=== PATIENT | female | born 1990 | race Caucasian/White ===

== ENCOUNTER 2017-05-04 10:32 | Emergency (ER) | payer MEDICAID ==
[2017-05-04] MEDS ORDERED: NALOXONE HCL INJ/PF 0.4 MG/1 ML SDV IV PRN (11:03)
--- NOTE | 2017-05-04 11:04 | ER Document Report ---
ED General - General Chief Complaint: Overdose Stated Complaint: POSSIBLE OVERDOSE Time Seen by Provider: 05/04/17 10:43 Notes: This is a 26-year-old female who was shooting heroin with a friend and then she went unconscious and stopped breathing. Friend called 911. Ambulance arrived and administered intramuscular Narcan. Patient had return of breathing. Woke up. Patient was transported good patient is tearful and crying at this time. Patient states that "I feel stupid". States that she has had multiple things happen in the past which has led to her having bad issues with addiction. Patient seems remorseful at this time and is requesting help to get off of heroin. Patient denies ever being in drug and alcohol treatment. Denies any suicidal or homicidal ideation at this time. Denies any other complaints. TRAVEL OUTSIDE OF THE [place] 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 Pulmonary Medical History: Reports: Hx Asthma Neurological Medical History: Reports: Hx Seizures Psychiatric Medical History: Reports: Hx Depression Past Surgical History: Reports: Hx Appendectomy, Other - Left lung removal - Immunizations Hx Diphtheria, Pertussis, Tetanus Vaccination: No Review of Systems - Review of Systems Constitutional: denies: Chills, Diaphoresis, Fever, Malaise, Weakness EENT: denies: Eye pain, Blurred vision, Ear pain, Throat pain, Difficulty swallowing, Mouth pain Cardiovascular: denies: Chest pain, Palpitations, Heart racing, Orthopnea, Dyspnea, Syncope Respiratory: Short of breath - Chronic shortness of breath due to left lung resection. denies: Cough, Hurts to breathe, Hemoptysis, Stridor, Wheezing Gastrointestinal: denies: Abdominal pain, Diarrhea, Nausea, Vomiting Genitourinary: denies: Burning, Dysuria, Discharge Musculoskeletal: denies: Back pain, Gout, Joint pain Skin: denies: Lesions, Lumps, Rash Neurological/Psychological: denies: Confusion, Weakness, Numbness Physical Exam - Vital signs Vitals: Temp 97.5 F 05/04/17 10:45 Interpretation: Normal - General General appearance: Appears well, Alert - HEENT Head: Normocephalic, Atraumatic Eyes: Normal Pupils: PERRL - Respiratory Respiratory status: No respiratory distress Chest status: Nontender Breath sounds: Other - Right lung clear, left lung breath sounds absent Chest palpation: Normal - Cardiovascular Rhythm: Regular Heart sounds: Normal auscultation Murmur: No - Abdominal Inspection: Normal Distension: No distension Bowel sounds: Normal Tenderness: Nontender Organomegaly: No organomegaly - Back Back: Normal, Nontender - Extremities General upper extremity: Normal inspection, Nontender, Normal color, Normal ROM , Normal temperature General lower extremity: Normal inspection, Nontender, Normal color, Normal ROM , Normal temperature, Normal weight bearing. No: Tia's sign - Neurological Neuro grossly intact: Yes Cognition: Normal Orientation: AAOx4 Fraser Coma Scale Eye Opening: Spontaneous Fraser Coma Scale Verbal: Oriented Jennifer Coma Scale Motor: Obeys Commands Fraser Coma Scale Total: 15 Speech: Normal Motor strength normal: LUE, RUE, LLE, RLE Sensory: Normal - Psychological Associated symptoms: Normal affect, Normal mood - Skin Skin Temperature: Warm Skin Moisture: Dry Skin Color: Normal, Other - Multiple skin abrasions and injection villalba in various stages of healing. Does appear to have significant scarring of the blood vessels on the back of both hands as well as in the antecubital fossa's of both arms. No obvious abscesses noted. No obvious cellulitis or lesions noted Course - Re-evaluation Re-evalutation: 05/04/17 12:44 At this time we will do basic psychiatric screening labs. Patient is requesting help so we will have mental health see her. If it possible may be able to get her into drug and alcohol program shortly. - Vital Signs Vital signs: Temp Pulse Resp BP Pulse Ox 97.5 F 17 109/76 98 05/04/17 10:45 05/04/17 13:00 05/04/17 13:00 05/04/17 13:00 - Laboratory Result Diagrams: 05/04/17 10:46 05/04/17 10:46 Laboratory results interpreted by me: 05/04/17 05/04/17 05/04/17 10:46 10:46 13:30 WBC 12.1 H RDW 14.2 H Absolute Neutrophils 9.2 H BUN 29 H AST 74 H ALT 150 H Urine Protein 100 H Urine Nitrite POSITIVE H Urine Urobilinogen 2.0 H Salicylates < 1.0 L Acetaminophen < 10 L - EKG Interpretation by Me EKG shows normal: Sinus rhythm, [place], Intervals, QRS Complexes Discharge - Discharge Clinical Impression: Accidental heroin overdose Qualifiers: Encounter type: initial encounter Qualified Code(s): T40.1X1A - Poisoning by heroin, accidental (unintentional), initial encounter Condition: Good Disposition: HOME, SELF-CARE Instructions: Drug Toxicity ([facility]), Overdose ([facility]), Urinary Tract Infection ([facility] ) Additional Instructions: You have been provided with information by our mental health team with regards to outpatient treatment programs. Currently there are no open spots available for us to transfer you there directly. If you feel like you are about to abuse heroin and you would like to get some help then please come to the emergency department and we will gladly watch you and get you through the acute phase of your withdrawal.. Please note that we definitely want you to succeed. If there is anything else that we can do for you we are here for you. Prescriptions: Sulfamethoxazole/Trimethoprim [Bactrim Ds Tablet] 1 each PO BID 3 Days #6 tablet Referrals: ALTA THOMPSON MD [Primary Care Provider] - Follow up as needed
--- NOTE | 2017-05-04 11:42 | RADIOLOGY REPORT (SQ) ---
EXAM DESCRIPTION: CHEST SINGLE VIEW COMPLETED DATE/TIME: 05/04/2017 11:27 am REASON FOR STUDY: sob COMPARISON: March 2010 EXAM PARAMETERS: NUMBER OF VIEWS: One view. TECHNIQUE: Single frontal radiographic view of the chest acquired. RADIATION DOSE: NA LIMITATIONS: None. FINDINGS: LUNGS AND PLEURA: Again there is almost complete opacification of the left hemithorax rela myron to a prior left pneumonectomy with shift of the heart and mediastinal structures into the left th oracic cavity. The right lung remains clear and well expanded MEDIASTINUM AND HILAR STRUCTURES: Limited evaluation due to postsurgical changes. HEART AND VASCULAR STRUCTURES: Limited evaluation due to postsurgical changes. BONES: No acute findings. HARDWARE: None in the chest. OTHER: No other significant finding. IMPRESSION: Postsurgical changes as noted above related to a left pneumonectomy. The right lung is clear and well expanded. Other findings as noted above TECHNICAL DOCUMENTATION: JOB ID: [id number] [employer]- All Rights Reserved Reading location - IP/workstation name: [email or web address]
[2017-05-04 12:06] LABS: ABSOLUTE BASOPHILS # (AUTO) 0.1 10^3/uL (0.0-0.2); ABSOLUTE EOSINOPHILS # (AUTO) 0.1 10^3/uL (0.0-0.6); ABSOLUTE LYMPHOCYTES (AUTO) 1.7 10^3/uL (0.5-4.7); ABSOLUTE NEUT (AUTO) 9.2 10^3/uL (1.7-8.2); BASOPHILS % (AUTO) 0.5 % (0-2); EOSINOPHILS % (AUTO) 0.8 % (0-6); HEMATOCRIT 38.3 % (36.0-47.0); HEMOGLOBIN 12.5 g/dL (12.0-15.5); MEAN CORPUSCULAR HEMOGLOBIN 28.5 pg (27.0-33.4); MEAN CORPUSCULAR HGB CONC 32.7 g/dL (32.0-36.0); MEAN CORPUSCULAR VOLUME 87 fl (80-97); MONOCYTES % (AUTO) 8.3 % (3-13); PLATELET COUNT 320 10^3/uL (150-450); RED BLOOD COUNT 4.39 10^6/uL (3.72-5.28); RED CELL DISTRIBUTION WIDTH 14.2 % (11.5-14.0); SEGMENTED NEUTROPHILS % (AUTO) 76.4 % (42-78); TOTAL CELLS COUNTED % (AUTO) 100 %; WHITE BLOOD COUNT 12.1 10^3/uL (4.0-10.5)
[2017-05-04 12:29] LABS: ALANINE AMINOTRANSFERASE 150 U/L (9-52); ALBUMIN 4.2 g/dL (3.5-5.0); ALKALINE PHOSPHATASE 74 U/L (38-126); ANION GAP 9 (5-19); ASPARTATE AMINO TRANSFERASE 74 U/L (14-36); BILIRUBIN,DIRECT 0.4 mg/dL (0.0-0.4); BILIRUBIN,TOTAL 0.4 mg/dL (0.2-1.3); BLOOD UREA NITROGEN 29 mg/dL (7-20); CALCIUM 9.5 mg/dL (8.4-10.2); CARBON DIOXIDE 27 mmol/L (22-30); CHLORIDE 105 mmol/L (98-107); GLUCOSE 96 mg/dL (75-110); POTASSIUM 4.7 mmol/L (3.6-5.0); SODIUM 140.9 mmol/L (137-145); TOTAL PROTEIN 7.5 g/dL (6.3-8.2)
[2017-05-04 12:30] LABS: ACETAMINOPHEN < 10 ug/mL (10-30); ALCOHOL < 10 mg/dL (NONE DETECTED); SALICYLATE < 1.0 mg/dL (2.0-20.0)
--- NOTE | 2017-05-04 13:16 | PSYCHOLOGICAL NOTE ---
Psych Note - Psych Note Psych Note: Reason for Consult: overdose consent permissions:none given Pt to ED via EMS with complaints of heroin overdose this morning. pt reports she was with a friend, which is who called EMS. Upon EMS arrival patient was breathing only 4 times a minute and they did bag the patient for about 7 minutes while they waited for the narcan to take effect. EMS gave a total of 4mg narcan before it was effective. pt reports she started using heroin after being taken off of her pain medications. Pt reports recently going to snf and then getting kicked out of her mother's house. Breaths even and unlabored at this time. Pt aware of situation and expresses desire to get help with her addiction at this time. Patient disclosed she has been stressed out since yesterday because she received a letter stating her disability was going to stop. She continues state that she is currently renting a room and without loss she will not be able to pay. She continues state "I did something stupid... I did heroin." Patient disclosed that she used to use heroin heavily approximately 1 year ago but since then has been mainly using meth. Patient states "I know my limits I am shocked this even happened." She continued disclosed that when she got out of snf the beginning of April when she arrived home her mom had changed the locks and will not talk to her; "I have never had to fend for myself." She continued disclosed that she does have other psychosocial stressors to include "court stuff in [place]" however states that she does have goals and wants sobriety. Patient reports that she did go to the [facility] sometime last year. Patient denies history of mental health diagnosis, inpatient psychiatric treatment, or medications for mental health. Patient disclosed high anxiety because of the current stressors. Behavioral Health Team contacted [facility]; beds are not available. Patient is alert and orientated to person, place, time and circumstance. Mood is euthymic with congruent affect. Patient denies suicidal and homicidal ideation. Patient confirms using heroin as a maladaptive coping skill states " I know my limits I am shocked this even happened." Delusions are absent and behaviors congruent with intact reality based presentation i.e. organized, linear, rational thinking. Intellectual abilities appear to be within the average range. Eye contact was well-maintained. Conversational speech was within normal rate, tone and prosody. Attention and concentration were good. Insight, judgment, impulse control are poor due to substance abuse. No medication recommendations at this time Diagnosis Polysubstance abuse 292.9 (F11.99) unspecified opiate related disorder; heroin per history provided by patient 292.9 (F15.99) unspecified stimulant related disorder; methamphetamine per history provided by patient Impression\\plan: Patient is considered psychiatrically clear. Patient does not meet IVC criteria per [place] GS 122C. Patient accidentally overdosed while using heroin as a maladaptive coping skill for current psychosocial and economic stressors. Patient reports attempting sobriety and going inpatient at the [facility] one time a year ago. Patient was provided substance abuse resource packet to include local economic resources for the food bank, soup [employer]uch[employer] etc. Patient is recommended to follow-up with [facility] for substance abuse treatment. Patient has been provided resource packet if she chooses to seek inpatient substance abuse treatment. Dr. Monson was consulted and the care and management of this patient; attending physician is agreement with augmentations and disposition.
[2017-05-04 14:00] LABS: AMORPHOUS SEDIMENT,URINE TRACE /HPF; APPEARANCE,URINE CLOUDY; BILIRUBIN,URINE NEGATIVE (NEGATIVE); COLOR,URINE YELLOW; GLUCOSE, URINE NEGATIVE (NEGATIVE); KETONES,URINE NEGATIVE (NEGATIVE); LEUKOCYTE ESTERASE,URINE NEGATIVE (NEGATIVE); NITRITE,URINE POSITIVE (NEGATIVE); PROTEIN,URINE 100 mg/dL (NEGATIVE); URINE SPECIFIC GRAVITY 1.019
[2017-05-04 14:05] VITALS: BP 109/76
[2017-05-04 14:17] LABS: URINE BARBITURATES SCREEN NEGATIVE; URINE BENZODIAZEPINES SCREEN UNCONFIRMED POSITIVE; URINE COCAINE SCREEN UNCONFIRMED POSITIVE; URINE MARIJUANA (THC) SCREEN NEGATIVE; URINE METHADONE SCREEN NEGATIVE; URINE PHENCYCLIDINE SCREEN NEGATIVE
--- NOTE | 2017-05-04 14:32 | EKG REPORT ---
SEVERITY:- NORMAL ECG - SINUS RHYTHM : Confirmed by: Moises Fernández MD 04-May-2017 14:32:02
[2017-05-04] MEDS ORDERED: CEFTRIAXONE 1 GM/D5W RTU 1 GM/50 ML RTUPB IV ONE (15:17)
[2017-05-04] MEDS ORDERED: CEFTRIAXONE INJ 1000 MG VIAL IV ONE (16:00)
== END 2017-05-04 16:29 | disposition home or self-care (01) ==
LOC: ER 10:32
DX: T40.1X1A Poisoning by heroin, accidental (unintentional), initial encounter (principal); R06.02 Shortness of breath; F17.210 Nicotine dependence, cigarettes, uncomplicated; F15.99 Other stimulant use, unspecified with unspecified stimulant-induced disorder; Z90.2 Acquired absence of lung [part of]
CPT/HCPCS: 93005; 99284; 96374; 36415; 87086; 80307 ×4; 84703; 85025; 87088; 80053; 81001; 87186; 71045; 93010; J0696

== ENCOUNTER 2018-10-31 15:31 | Emergency (ER) | payer MEDICAID ==
--- NOTE | 2018-10-31 16:12 | ER Document Report ---
ED Medical Screen (RME) - General Chief Complaint: Vaginal Bleeding Stated Complaint: VAGINAL BLEEDING Time Seen by Provider: 10/31/18 16:06 Primary Care Provider: ALTA THOMPSON MD [Primary Care Provider] - Follow up as needed Information source: Patient Notes: Patient presents complaining of pelvic pain with vaginal bleeding for the past 2 weeks. Patient denies any urinary symptoms. Patient states she did take a positive home test recently. Patient is G2, P1. I have greeted and performed a rapid initial assessment of this patient. A comprehensive ED assessment and evaluation of the patient, analysis of test results and completion of the medical decision making process will be conducted by additional ED providers. TRAVEL OUTSIDE OF THE [place] IN LAST 30 DAYS: No - Related Data Allergies/Adverse Reactions: No Known Allergies Allergy (Verified 10/31/18 15:31) Past Medical History - Social History Drug Abuse: Methamphetamine Pulmonary Medical History: Reports: Hx Asthma Neurological Medical History: Reports: Hx Seizures Renal/ Medical History: Denies: Hx Peritoneal Dialysis Psychiatric Medical History: Reports: Hx Depression Past Surgical History: Reports: Hx Appendectomy, Other - Left lung removal - Immunizations Hx Diphtheria, Pertussis, Tetanus Vaccination: No Physical Exam - Vital signs Vitals: Temp Pulse Resp BP Pulse Ox 98.0 F 104 H 16 117/68 97 10/31/18 15:37 10/31/18 15:37 10/31/18 15:37 10/31/18 15:37 10/31/18 15:37 - Abdominal Tenderness: Tender - lower pelvic Course - Vital Signs Vital signs: Temp Pulse Resp BP Pulse Ox 98.0 F 104 H 16 117/68 97 10/31/18 15:37 10/31/18 15:37 10/31/18 15:37 10/31/18 15:37 10/31/18 15:37 Doctor's Discharge - Discharge Referrals: ALTA THOMPSON MD [Primary Care Provider] - Follow up as needed
[2018-10-31 16:48] LABS: ABSOLUTE BASOPHILS # (AUTO) 0.1 10^3/uL (0.0-0.2); ABSOLUTE EOSINOPHILS # (AUTO) 0.3 10^3/uL (0.0-0.6); ABSOLUTE LYMPHOCYTES (AUTO) 2.5 10^3/uL (0.5-4.7); ABSOLUTE MONOCYTES (AUTO) 1.2 10^3/uL (0.1-1.4); ABSOLUTE NEUT (AUTO) 5.9 10^3/uL (1.7-8.2); BASOPHILS % (AUTO) 0.7 % (0-2); EOSINOPHILS % (AUTO) 3.1 % (0-6); HEMATOCRIT 35.5 % (36.0-47.0); HEMOGLOBIN 12.1 g/dL (12.0-15.5); LYMPHOCYTES % (AUTO) 25.3 % (13-45); MEAN CORPUSCULAR HEMOGLOBIN 29.3 pg (27.0-33.4); MEAN CORPUSCULAR VOLUME 86 fl (80-97); MONOCYTES % (AUTO) 12.2 % (3-13); PLATELET COUNT 337 10^3/uL (150-450); RED BLOOD COUNT 4.12 10^6/uL (3.72-5.28); RED CELL DISTRIBUTION WIDTH 13.5 % (11.5-14.0); SEGMENTED NEUTROPHILS % (AUTO) 58.7 % (42-78); TOTAL CELLS COUNTED % (AUTO) 100 %
[2018-10-31 16:50] LABS: APPEARANCE,URINE CLEAR; BILIRUBIN,URINE NEGATIVE (NEGATIVE); COLOR,URINE COLORLESS; GLUCOSE, URINE NEGATIVE (NEGATIVE); KETONES,URINE TRACE mg/dL (NEGATIVE); LEUKOCYTE ESTERASE,URINE NEGATIVE (NEGATIVE); NITRITE,URINE NEGATIVE (NEGATIVE); PROTEIN,URINE NEGATIVE (NEGATIVE); URINE SPECIFIC GRAVITY 1.001; UROBILINOGEN,URINE NEGATIVE mg/dL (<2.0)
--- NOTE | 2018-10-31 18:44 | RADIOLOGY REPORT (SQ) ---
EXAM DESCRIPTION: U/S OB TRANSVAGINAL W/O DOP COMPLETED DATE/TIME: 10/31/2018 6:31 pm REASON FOR STUDY: pelvic pain, vag bleeding COMPARISON: None. TECHNIQUE: Transvaginal static and realtime grayscale images acquired of the pelvis. Additional dariela cted spectral and color Doppler images recorded. All images stored on PACs. CLINICAL AGE: 4 weeks bHCG: Pending. LIMITATIONS: None. FINDINGS: UTERUS: No masses. No anomalies. GESTATIONAL SAC: Normal shape. YOLK SAC: Yes. POLE: None present. RIGHT ADNEXA: Normal ovary with normal vascular flow. No adnexal free fluid. No adnexal masses. LEFT ADNEXA: Normal ovary with normal vascular flow. No adnexal free fluid. No adnexal masses. FREE FLUID: None. OTHER: No other significant finding. IMPRESSION: POSSIBLE EARLY INTRAUTERINE . BHCG LEVEL APPROPRIATE FOR ENDOMETRIAL FINDINGS. CONSIDER F/U BHCG AND/OR ULTRASOUND FOR VERIFICATION AND TO EXCLUDE ECTOPIC . Trimester of : First trimester - 0 to 13 weeks. TECHNICAL DOCUMENTATION: JOB ID: [id number] [employer]- All Rights Reserved Reading location - IP/workstation name: [email or web address]
--- NOTE | 2018-10-31 19:10 | ER Document Report ---
ED GI/ - General Chief Complaint: Vaginal Bleeding Stated Complaint: VAGINAL BLEEDING Time Seen by Provider: 10/31/18 16:06 Primary Care Provider: ALTA THOMPSON MD [PEDIATRICS] - Follow up as needed Mode of Arrival: Ambulatory Information source: Patient Notes: 28-year-old female presented to ED for complaint of vaginal bleeding for the past 2 weeks. She states she just took a home test yesterday and it was positive. She is alert oriented respirations regular and unlabored. She states she has been having some pelvic pain for couple days. She states she did use meth last less than a week ago. Is 2 para 1 TRAVEL OUTSIDE OF THE [place] IN LAST 30 DAYS: No - HPI Patient complains to provider of: Pelvic pain, , Vaginal bleeding Onset: Other - 2 weeks Timing/Duration: Gradual Quality of pain: Achy Severity at maximum: Mild Severity in ED: Almost gone Pain Level: 1 Vaginal bleeding (Compared to normal period): Spotting, Dark brown LMP: August Associated symptoms: Other - Dark vaginal bleeding no clots for 2 weeks with minimal pelvic pain Exacerbated by: Denies Relieved by: Denies Similar symptoms previously: No Recently seen / treated by doctor: No - Related Data Allergies/Adverse Reactions: No Known Allergies Allergy (Verified 10/31/18 15:31) Past Medical History - General Information source: Patient - Social History Smoking Status: Current Every Day Smoker Cigarette use (# per day): Yes - She is stopping Smoking Education Provided: Yes Frequency of alcohol use: None Drug Abuse: Methamphetamine - Patient states she has not used it since she found out she was yesterday Family History: Reviewed & Not Pertinent Patient has suicidal ideation: No Patient has homicidal ideation: No - Past Medical History Cardiac Medical History: Reports: None Pulmonary Medical History: Reports: None EENT Medical History: Reports: None Neurological Medical History: Reports: Hx Seizures - As a child Endocrine Medical History: Reports: None Renal/ Medical History: Reports: None Malignancy Medical History: Reports: Hx Lung Cancer - Left lung removed GI Medical History: Reports: None Musculoskeletal Medical History: Reports None Skin Medical History: Reports None Psychiatric Medical History: Reports: Hx Depression Traumatic Medical History: Reports: None Infectious Medical History: Reports: None Past Surgical History: Reports: Hx Appendectomy, Other - Left lung removal - Immunizations Hx Diphtheria, Pertussis, Tetanus Vaccination: No Review of Systems - Review of Systems Constitutional: No symptoms reported EENT: No symptoms reported Cardiovascular: No symptoms reported Respiratory: No symptoms reported Gastrointestinal: No symptoms reported Genitourinary: No symptoms reported Female Genitourinary: , Vaginal bleeding - Minimal, spotting Musculoskeletal: No symptoms reported Skin: No symptoms reported Hematologic/Lymphatic: No symptoms reported Neurological/Psychological: No symptoms reported -: Yes All other systems reviewed and negative Physical Exam - Vital signs Vitals: Temp Pulse Resp BP Pulse Ox 98.0 F 104 H 16 117/68 97 10/31/18 15:37 10/31/18 15:37 10/31/18 15:37 10/31/18 15:37 10/31/18 15:37 Interpretation: Normal - General General appearance: Appears well, Alert - HEENT Head: Normocephalic, Atraumatic Eyes: Normal Pupils: PERRL - Respiratory Respiratory status: No respiratory distress Chest status: Nontender Breath sounds: Normal Chest palpation: Normal - Cardiovascular Rhythm: Regular Heart sounds: Normal auscultation Murmur: No - Abdominal Inspection: Normal Distension: No distension Bowel sounds: Normal Tenderness: Nontender Organomegaly: No organomegaly - Genitourinary External exam: Normal Speculum exam: Normal Vaginal bleeding: Mild Bimanuel exam: Normal - Back Back: Normal, Nontender - Extremities General upper extremity: Normal inspection, Nontender, Normal color, Normal ROM, Normal temperature General lower extremity: Normal inspection, Nontender, Normal color, Normal ROM, Normal temperature, Normal weight bearing. No: Tia's sign - Neurological Neuro grossly intact: Yes Cognition: Normal Orientation: AAOx4 Jennifer Coma Scale Eye Opening: Spontaneous Jennifer Coma Scale Verbal: Oriented Jennifer Coma Scale Motor: Obeys Commands Jennifer Coma Scale Total: 15 Speech: Normal Motor strength normal: LUE, RUE, LLE, RLE Sensory: Normal - Psychological Associated symptoms: Normal affect, Normal mood - Skin Skin Temperature: Warm Skin Moisture: Dry Skin Color: Normal Course - Re-evaluation Re-evalutation: 10/31/18 19:33 Labs and ultrasound results discussed with patient and written report of labs and ultrasound given to patient to follow-up with primary care and [facility]. Patient was discharged home. She was instructed to start vitamins and to follow-up with the [facility] and [facility] department. - Vital Signs Vital signs: Temp Pulse Resp BP Pulse Ox 97.7 F 84 16 106/67 99 10/31/18 19:56 10/31/18 19:56 10/31/18 15:37 10/31/18 19:56 10/31/18 19:56 - Laboratory Result Diagrams: 10/31/18 16:22 Laboratory results interpreted by me: 10/31/18 10/31/18 10/31/18 16:22 16:22 16:22 Hct 35.5 L Beta HCG, Quant 20981.00 H Urine Ketones TRACE H Urine Blood MODERATE H - Diagnostic Test Radiology reviewed: Image reviewed, Reports reviewed Discharge - Discharge Clinical Impression: Vaginal bleeding affecting early , Pelvic pain affecting in first trimester, antepartum Condition: Stable Disposition: HOME, SELF-CARE Instructions: [facility] Additional Instructions: Pelvic Pain in Lower abdominal pain during can have many causes. We look for serious causes such as appendicitis, tubal , miscarriage, placental separation, or urinary tract infection. Less serious causes of pain include corpus luteum cyst (ovarian cyst of ) or stretching of the pelvic tissues by the enlarging uterus. Sometimes the pain comes from the bowels. If no specific cause for the pain is found, we attribute the pain to stretching of the uterine ligaments. This is called "round ligament strain." It is not dangerous. Just rest until the pain goes away. Call us or come back for reexamination if any problems occur, such as: (1) Pain that becomes more severe, steady, or becomes concentrated in one specific area. Also, pain that is more severe with movement or coughing. (2) Vomiting that persists or becomes more frequent. (3) Blood in the vomitus, urine, or bowel movements. Blood in the stool may have a tarry or black appearance. (4) Shaking chills or fever greater than 100 degrees. (5) The abdomen becomes more distended or swollen. (6) Bowel movements cease. (7) Vaginal bleeding. : You are . care is best started as early in as possible. If you're unsure about continuing this , you should discuss this with your physician or with emerging solutions executive at [facility]. You should take only medications approved by your physician. Acetaminophen can safely be taken for minor pains. As a rule, medication for chronic conditions such as asthma or seizures can safely be continued. You should discuss with the physician every medicine you take. Any regular exercise program can be continued. Talk to your physician, however, before engaging in competitive or demanding sports. Alcohol, smoking, and "street drugs" are dangerous to your baby. Cocaine is especially dangerous. Don't use any illicit drugs! BLEEDING DURING EARLY : You have been evaluated for passing blood while . While we take this symptom very seriously, most women with your degree of bleeding will go on to have a perfectly normal baby. At this time, there is no indication that a miscarriage will occur. (A miscarriage occurs when the fetus is abnormal. There is no medicine or treatment to prevent it.) A more serious cause of bleeding is tubal (or ectopic) . An ultrasound usually can show whether the is in the uterus or in the tube. Sometimes in early , no fetus is seen. In this case, careful follow-up, including repeat blood tests and repeat ultrasound, is necessary. Do not douche or have sex for at least a week, or until OK'd by the doctor. Don't use tampons. Call the doctor or return for re-examination if there is an increase in bleeding or cramping, extreme weakness, fainting, new abdominal pain, fever, or passage of tissue. VAGINOSIS, BACTERIAL: Your exam shows you have bacterial vaginosis. This condition is due to an overgrowth of bacteria in the vagina. Symptoms may include vaginal itching or pain, a smelly discharge, and sometimes burning with urination. Normally this is not transmitted by sexual contact. Vaginosis can be treated with oral or topical antibiotics. Metronidazole (Flagyl) pills are usually effective. Topical vaginal creams include Cleocin and Metro-Gel. You should avoid sexual contact until your symptoms are all better. Call the doctor if you develop pelvic pain, fever, or problems with urination, or if you don't improve as expected. CEPHALOSPORINS: An antibiotic of the cephalosporin class has been prescribed. This type of antibiotic covers a wide variety of infections, including those of the skin, lungs, middle ear, and urinary tract. This antibiotic is somewhat similar to the penicillin family. In rare cases, a person who is allergic to penicillin will also be allergic to this medication. If you have had a severe allergic reaction to penicillin, and have not taken this antibiotic since that time, notify your doctor. Antibiotics which cover many germs ("broad spectrum" antibiotics) are more likely to cause diarrhea or "yeast" infections. Women prone to vaginal yeast problems may suffer an attack after taking this antibiotic. In infants, oral thrush (white spots "stuck" on the cheek) or yeast diaper rash may result. See your doctor if these problems occur. Call the doctor at once if you develop hives, itching, shortness of breath, or lightheadedness. AZITHROMYCIN: Azithromycin (Zithromax) is a broad spectrum antibiotic in the same class as erythromycin. It can treat a variety of bacterial infections, but is most frequently used for respiratory infections. Azithromycin is extremely long-lasting. It accumulates in body tissues and continues to kill bacteria for many days. In order to improve absorption, Azithromycin should be taken at least one hour before or two hours after a meal. It does not have the same strong tendency to upset the stomach as erythromycin and is usually very well tolerated. Patients who have had a rash or other true allergic reactions to erythromycin should not take this medication. Call if you develop gastrointestinal distress, severe diarrhea, rash, hives, itching, or shortness of breath. METRONIDAZOLE: Metronidazole (Flagyl) has been prescribed. This medication is used to kill a type of bacteria called anaerobes, and protozoan parasites such as tric homonas and Giardia. Flagyl often causes a metallic taste in the mouth and mild nausea. Do not use alcohol in any form with Flagyl (including alcohol in medication elixirs). Flagyl interacts with alcohol to cause flushing, palpitations, headache, stomach cramps, and vomiting. Do not use Flagyl if you are taking Antabuse (disulfiram). Call the doctor at once if you develop rash, shortness of breath, itching, or lightheadedness. FOLLOW-UP CARE: If you have been referred to a physician for follow-up care, call the physicians office for an appointment as you were instructed or within the next two days. If you experience worsening or a significant change in your symptoms (very heavy bleeding with large clots of blood, passage of tissue, more severe abdominal / pelvic pain or cramping, feeling faint or severe weakness, fever, etc.), notify the physician immediately or return to the Emergency Department at any time for re-evaluation. OBSTETRIC-GYNECOLOGIC (OB-STARTING SHEET TANK OPERATOR) PHYSICIANS IN [place]: [facility] [address], [place] [phone] [facility] [address], [place] [phone] For active duty and dependents diagnosed with a threatened or miscarriage, you should follow up in the following manner: Standard patients who have a local civilian provider should follow up with that provider. Patients of the Family Practice Clinic should call your Team Nurse at 8:00 am the following morning for further instructions. If you are neither a Standard patient nor a patient of the Family Practice Clinic, you should follow up at the [facility] ([facility]). Patients already enrolled in the [facility] OB Clinic, Prime patients not as signed to the Family Practice Clinic, and Active Duty patients not assigned to Family Practice Clinic should report to the [facility] Lab at 8:00 am the next morning that the [facility] OB Clinic is open and then you will be seen in the OB Clinic at 11:00 am. Prescriptions: Metronidazole [Flagyl 500 mg Tablet] 500 mg PO BID #14 tablet Forms: Smoking Cessation Education Referrals: ALTA THOMPSON MD [PEDIATRICS] - Follow up as needed
[2018-10-31 19:18] LABS: BACTERIA (WET MOUNT) 3+ BACTERIA SEEN; EPITHELIALS (WET MOUNT) 3+ EPITHELIALS SEEN; RBCS (WET MOUNT) NO RBCS SEEN; T.VAGINALIS (WET MOUNT) NO TRICHOMONAS SEEN; WBCS (WET MOUNT) 1+ WBCS SEEN; YEAST (WET MOUNT) NO YEAST SEEN
[2018-10-31] MEDS ORDERED: LIDOCAINE 1% INJ-PF (10 MG/ML) 30 ML SDV INJ ONE (19:25)
[2018-10-31] MEDS ORDERED: AZITHROMYCIN 250 MG TABLET PO ONE (19:25)
[2018-10-31] MEDS ORDERED: CEFTRIAXONE INJ 250 MG VIAL IM ONE (19:25)
[2018-10-31] MEDS ORDERED: METRONIDAZOLE 500 MG TABLET PO ONE (19:26)
[2018-10-31 19:39] LABS: CHLAM PCR NOT DETECTED (NOT DETECT)
[2018-10-31 19:58] VITALS: BP 106/67
== END 2018-10-31 20:04 | disposition home or self-care (01) ==
LOC: ER 15:31
DX: O20.9 Hemorrhage in early pregnancy, unspecified (principal); R10.2 Pelvic and perineal pain; O99.331 Smoking (tobacco) complicating pregnancy, first trimester; Z85.118 Personal history of other malignant neoplasm of bronchus and lung; Z90.2 Acquired absence of lung [part of]
CPT/HCPCS: 99284; 96372; 86900; 86901; 36415; 87210; 84702; 85025; 81001; 87491; 87591; 76817; Q0144; J3490 ×2; J0696